=== PATIENT | female | born 1965 | race Caucasian/White ===

== ENCOUNTER 2017-06-03 09:11 | Inpatient (IN) | payer MEDICAID ==
[2017-06-03 09:23] VITALS: BMI 32.3
[2017-06-03] MEDS ORDERED: Sodium Chloride 0.9% 1,000 ML IV STA ×2 (10:05→13:35)
[2017-06-03] MEDS ORDERED: Morphine 4 mg/ml ISec IVP STA ×2 (10:05→13:03)
[2017-06-03 10:50] LABS: ADD MANUAL DIFF? NO
[2017-06-03 10:54] LABS: BASO # 0.02 K/mm3 (0.0-2.0); BASO % 0.4 % (0.0-3.0); EOS % 0.5 % (1.5-5.0); GRAN # 3.41 (1.4-6.5); GRAN % 60.6 % (50.0-68.0); HEMATOCRIT 36.5 % (36.0-48.0); LYMPH # 1.9 (1.2-3.4); LYMPH % 33.9 % (22.0-35.0); MEAN CELL VOLUME 83.9 fl (80.0-105.0); MEAN CORPUSCULAR HEMOGLOBIN 28.7 pg (25.0-35.0); MEAN CORPUSCULAR HGB CONC 34.2 g/dl (31.0-37.0); MEAN PLATELET VOLUME 10.2 fl (7.0-11.0); MONO # 0.3 (0.1-0.6); MONO % 4.6 % (1.0-6.0); PLATELET COUNT 276 10^3/uL (120.0-450.0); RED CELL DISTRIBUTION WIDTH 12.9 % (11.5-14.5); WHITE BLOOD COUNT 5.6 10^3/ul (4.5-11.0)
[2017-06-03 11:03] LABS: ALB/GLOB RATIO 1.3 (1.1-1.8); ALKALINE PHOSPHATASE 233 U/L (38-133); ALT/SGPT 300 U/L (7-56); AST/SGOT 192 U/L (15-39); BILIRUBIN,TOTAL 0.6 mg/dL (0.2-1.3); BLOOD UREA NITROGEN 13 mg/dL (7-21); CALCIUM 9.7 mg/dL (8.4-10.5); CARBON DIOXIDE 25 mmol/L (21-33); CHLORIDE 100 mmol/L (98-107); GFR AFRICAN-AMERICAN > 60; GLUCOSE,RANDOM 269 mg/dL (70-110); LIPASE 285 U/L (23-300); POTASSIUM 4.2 mmol/L (3.6-5.0); SODIUM 135 mmol/L (132-148); TOTAL PROTEIN 7.2 g/dL (5.8-8.3)
[2017-06-03 11:05] LABS: PH,URINE 5.5 (4.7-8.0); URINE BILIRUBIN NEGATIVE (NEGATIVE); URINE BLOOD NEGATIVE (NEGATIVE); URINE GLUCOSE (UA) >=1000 mg/dL (NEGATIVE); URINE KETONE >=80 mg/dL (NEGATIVE); URINE LEUKOCYTE ESTERASE NEGATIVE Leu/uL (NEGATIVE); URINE PROTEIN NEGATIVE mg/dL (<30 mg/dL); URINE UROBILINOGEN 0.2 E.U./dL (<1 E.U./dL)
[2017-06-03 11:06] LABS: URINE APPEARANCE CLEAR (CLEAR); URINE COLOR YELLOW (YELLOW)
[2017-06-03] MEDS ORDERED: Iohexol 350 MG/100 ML VIAL ONE (11:19)
--- NOTE | 2017-06-03 11:40 | ED PDOC ---
Arrival/HPI - General Chief Complaint: Back Pain Time Seen by Provider: 06/03/17 09:37 Historian: Patient - History of Present Illness Narrative History of Present Illness (Text): 06/03/17 11:36 52-year-old female with a history of diabetes presents today with a 3 day history of bilateral back pain. Denies chest pain or shortness of breath. Denies fevers or chills. Patient denies any urinary symptoms. Patient states the pain has been gradually worsening over the past 3 days. She denies numbness weakness or tingling in the lower extremities. Denies bladder or bowel incontinence. Denies trauma or injury. Patient states she's been taking unknown pain medication at home without improvement in her symptoms. Time/Duration: Other (3 days) Symptom Course: Worsening Past Medical History - Provider Review Nursing Documentation Reviewed: Yes - Travel History Have you recently traveled outside [place] w/in the past 3 mons?: No - Infectious Disease Hx of Infectious Diseases: None - Tetanus Immunization Tetanus Immunization: Unknown - Cardiac Hx Cardiac Disorders: No - Pulmonary Hx Respiratory Disorders: No - Neurological Hx Neurological Disorder: No - HEENT Hx HEENT Disorder: Yes Hx Glaucoma: Yes - Renal Hx Renal Disorder: No - Endocrine/Metabolic Hx Endocrine Disorders: Yes Hx Diabetes Mellitus Type 2: Yes - Hematological/Oncological Hx Blood Disorders: No - Integumentary Hx Dermatological Disorder: No - Musculoskeletal/Rheumatological Hx Musculoskeletal Disorders: No - Gastrointestinal Hx Gastrointestinal Disorders: No - Genitourinary/Gynecological Hx Genitourinary Disorders: No - Psychiatric Hx Psychophysiologic Disorder: No Hx Substance Use: No - Surgical History Hx Section: Yes (x4) - Anesthesia Hx Anesthesia: Yes Hx Anesthesia Reactions: No Family/Social History - Physician Review Nursing Documentation Reviewed: Yes Family/Social History: Unknown Family HX Smoking Status: Never Smoked Hx Alcohol Use: No Hx Substance Use: No Allergies/Home Meds Allergies/Adverse Reactions: Allergies Penicillins Allergy (Verified 06/03/17 09:23) ITCHING Home Medications: Home Meds Medication Instructions Recorded Confirmed Insulin Glargine, Recombina 50 units SQ DAILY 06/03/17 06/03/17 [Lantus] MetFORMIN [glucoPHAGE] 500 mg PO BID 06/03/17 06/03/17 Review of Systems - Review of Systems Constitutional: absent: Fatigue, Fevers Respiratory: absent: SOB, Cough Cardiovascular: absent: Chest Pain, Palpitations Gastrointestinal: absent: Abdominal Pain, Constipation, Diarrhea, Nausea, Vomiting Genitourinary Female: absent: Dysuria, Frequency, Hematuria, Vaginal Bleeding, Vaginal Discharge Musculoskeletal: Back Pain. absent: Arthralgias, Neck Pain Skin: absent: Rash, Pruritis Neurological: absent: Headache, Dizziness Psychiatric: absent: Anxiety, Depression Physical Exam Vital Signs Reviewed: Yes Vital Signs Temp Pulse Resp BP Pulse Ox 06/03/17 09:26 97.9 F 69 20 106/72 100 Temperature: Afebrile Blood Pressure: Normal Pulse: Regular Respiratory Rate: Normal Appearance: Positive for: Well-Appearing, Non-Toxic, Comfortable Pain Distress: None Mental Status: Positive for: Alert and Oriented X 3 Finger Stick Blood Glucose: 240 - Systems Exam Head: Present: Atraumatic Neck: Present: Normal Range of Motion Respiratory/Chest: Present: Clear to Auscultation, Good Air Exchange. No: Respiratory Distress, Accessory Muscle Use Cardiovascular: Present: Regular Rate and Rhythm, Normal S1, S2. No: Murmurs Abdomen: Present: Normal Bowel Sounds. No: Tenderness, Distention, Peritoneal Signs, Rebound, Guarding Back: Present: CVA Tenderness Upper Extremity: Present: Normal Inspection Lower Extremity: Present: Normal Inspection Neurological: Present: GCS=15, Speech Normal Skin: Present: Warm, Dry, Normal Color. No: Rashes Psychiatric: Present: Alert, Oriented x 3 Medical Decision Making ED Course and Treatment: 06/03/17 11:39 Patient is nontoxic well appearing with stable vital signs presenting with severe back pain CBC within normal limits CMP glucose 269. Elevated LFTs . Lipase wnl Urinalysis + glucose CAT scan:FINDINGS: LOWER THORAX: Unremarkable. LIVER: Unremarkable. No gross lesion or ductal dilatation. GALLBLADDER AND BILE DUCTS: Unremarkable. PANCREAS: There is a mass in the pancreatic head and uncinate process suspicious for a pancreatic malignancy. This can be seen on axial image 66 series 2 where it measures 22 x 33 mm. There is also invasion of the fat planes surrounding the superior mesenteric artery. There is narrowing of the superior mesenteric vein seen on coronal image 38. SPLEEN: Unremarkable. ADRENALS: Unremarkable. No mass. KIDNEYS AND URETERS: Unremarkable. No hydronephrosis. No solid mass. VASCULATURE: Unremarkable. No aortic aneurysm. BOWEL: Unremarkable. No obstruction. No gross mural thickening. APPENDIX: Normal appendix. PERITONEUM: Unremarkable. No free fluid. No free air. LYMPH NODES: There is an enlarged lymph node seen on the left side of the aorta and near the pancreas measuring 9 x 18 mm. Image 65 BLADDER: Unremarkable. REPRODUCTIVE: Unremarkable. BONES: No acute fracture. OTHER FINDINGS: Findings were discussed with Padmini Bernabe in the emergency department at 12: 30 p.m. IMPRESSION: Hypodense mass in the head and uncinate process of the pancreas with invasion of the fat planes around the superior mesenteric artery and vein. Adjacent adenopathy. Findings consistent with pancreatic malignancy Patient reassessment:pt with continued pain; additional morphine added. NS iv bolus given Discussed all results with patient in depth. will admit for pancreatic cancer work up; pts brother at 43 from pancreatic cancer. case discussed with dr. garcia; accepts admission. Impression: intractable back pain, pancreatic cancer, hyperglycemia admit to med/surg - Lab Interpretations Lab Results: 06/03/17 10:40 06/03/17 10:40 Lab Results 06/03/17 10:40: WBC 5.6, RBC 4.35, Hgb 12.5, Hct 36.5, MCV 83.9, MCH 28.7, MCHC 34.2, RDW 12.9, Plt Count 276, MPV 10.2, Gran % 60.6, Lymph % (Auto) 33.9, Scott % (Auto) 4.6, Eos % (Auto) 0.5 L, Baso % (Auto) 0.4, Gran # 3.41, Lymph # 1.9, Scott # 0.3, Eos # 0.0, Baso # 0.02 06/03/17 10:40: Sodium 135, Potassium 4.2, Chloride 100, Carbon Dioxide 25, Anion Gap 14, BUN 13, Creatinine 0.5, Est GFR ( Amer) > 60, Est GFR (Non- Af Amer) > 60, Random Glucose 269 H, Calcium 9.7, Total Bilirubin 0.6, AST 192 H , ALT 300 H, Alkaline Phosphatase 233 H, Total Protein 7.2, Albumin 4.1, Globulin 3.1, Albumin/Globulin Ratio 1.3, Lipase 285 06/03/17 10:40: Urine Color Yellow, Urine Appearance Clear, Urine pH 5.5, Ur Specific Louise 1.025, Urine Protein Negative, Urine Glucose (UA) >=1000, Urine Ketones >=80, Urine Blood Negative, Urine Nitrate Negative, Urine Bilirubin Negative, Urine Urobilinogen 0.2, Ur Leukocyte Esterase Negative - RAD Interpretation Radiology Orders: 06/03/17 10:05 ABD & PELVIS IV CONTRAST ONLY [CT] Stat - Medication Orders Current Medication Orders: Discontinued Medications Sodium Chloride (Sodium Chloride 0.9%) 1,000 mls @ 999 mls/hr IV .Q1H1M STA Stop: 06/03/17 11:05 Last Admin: 06/03/17 10:37 Dose: 999 mls/hr Iohexol (Omnipaque 350 100 Ml) Confirm Administered Dose 350 mg .ROUTE .STK-MED ONE Stop: 06/03/17 11:20 Morphine Sulfate (Morphine) 4 mg IVP STAT STA Stop: 06/03/17 10:06 Last Admin: 06/03/17 10:36 Dose: 4 mg Morphine Sulfate (Morphine) 4 mg IVP STAT STA Stop: 06/03/17 13:04 Disposition/Present on Arrival - Present on Arrival Any Indicators Present on Arrival: No History of DVT/PE: No History of Uncontrolled Diabetes: No Urinary Catheter: No History of Decub. Ulcer: No History Surgical Site Infection Following: None - Disposition Have Diagnosis and Disposition been Completed?: Yes Diagnosis: Pancreatic cancer, Hyperglycemia, Intractable back pain Disposition: HOSPITALIZED Disposition Time: 13:15 Patient Plan: Admission Condition: FAIR Referrals: PCP,NO [Primary Care Provider] - Follow up with primary Forms: [employer] (Swazi)
--- NOTE | 2017-06-03 12:38 | CT ---
PROCEDURE: CT Abdomen and Pelvis with contrast HISTORY: back pain/ b/l COMPARISON: None. TECHNIQUE: Contrast dose: 100 cc of Omni 350 Radiation dose: Total exam DLP = 1045 mGy-cm. This CT exam was performed using one or more of the following dose reduction techniques: Automated exposure control, adjustment of the mA and/or kV according to patient size, and/or use of iterative reconstruction technique. FINDINGS: LOWER THORAX: Unremarkable. LIVER: Unremarkable. No gross lesion or ductal dilatation. GALLBLADDER AND BILE DUCTS: Unremarkable. PANCREAS: There is a mass in the pancreatic head and uncinate process suspicious for a pancreatic malignancy. This can be seen on axial image 66 series 2 where it measures 22 x 33 mm. There is also invasion of the fat planes surrounding the superior mesenteric artery. There is narrowing of the superior mesenteric vein seen on coronal image 38. SPLEEN: Unremarkable. ADRENALS: Unremarkable. No mass. KIDNEYS AND URETERS: Unremarkable. No hydronephrosis. No solid mass. VASCULATURE: Unremarkable. No aortic aneurysm. BOWEL: Unremarkable. No obstruction. No gross mural thickening. APPENDIX: Normal appendix. PERITONEUM: Unremarkable. No free fluid. No free air. LYMPH NODES: There is an enlarged lymph node seen on the left side of the aorta and near the pancreas measuring 9 x 18 mm. Image 65 BLADDER: Unremarkable. REPRODUCTIVE: Unremarkable. BONES: No acute fracture. OTHER FINDINGS: Findings were discussed with Padmini Bernabe in the emergency department at 12:30 p.m. IMPRESSION: Hypodense mass in the head and uncinate process of the pancreas with invasion of the fat planes around the superior mesenteric artery and vein. Adjacent adenopathy. Findings consistent with pancreatic malignancy
--- NOTE | 2017-06-03 14:19 | CP.PCM.HP ---
<Rylie Chapin - Last Filed: 06/03/17 15:00> History of Present Illness - History of Present Illness History of Present Illness: 52 year old female with past medical hx of diabetes mellitus, type 2 presents to the ED for 3 day history of B/L flank pain. Patient reports that pain was progressively worsening and made it difficult to sleep. Rates pain 6/10, non- radiating. She thought she had a kidney problem, Saw her PMD who informed her that it wasnt her kidney. Patient denies any recent weight loss, headaches, dizziness, chest pain, sob, abdominal pain, urinary symptoms, changes in bowel habits. Reports having decreased appetite. ED Course: Morphine 4mg x 2, NS bolus x 1 Allergies: PCN Medical Hx: DM, B/L cataracts Medications: Metoformin, Insulin Surgical Hx: C/S x 4 Social Hx: denies alcohol, drug, tobacco use Family Hx: Brother at age 43 from pancreatic CA Present on Admission - Present on Admission Any Indicators Present on Admission: No History of DVT/PE: No History of Uncontrolled Diabetes: Yes Urinary Catheter: No Decubitus Ulcer Present: No Review of Systems - Review of Systems All systems: reviewed and no additional remarkable complaints except - Constitutional Constitutional: absent: Chills, Fatigue, Weight Loss, Weakness - EENT Eyes: absent: Change in Vision Ears: absent: Decreased Hearing - Cardiovascular Cardiovascular: absent: Chest Pain, Dyspnea, Lightheadedness, Palpitations - Respiratory Respiratory: absent: Cough, Dyspnea, Wheezing - Gastrointestinal Gastrointestinal: absent: Abdominal Pain, Change in Stool Character, Constipation, Diarrhea, Nausea, Vomiting - Genitourinary Genitourinary: absent: Difficulty Urinating, Dysuria, Hematuria, Urinary Frequency - Musculoskeletal Musculoskeletal: Back Pain. absent: Joint Swelling, Numbness, Tingling - Integumentary Integumentary: absent: Change in Hair, Pruritus, Rash, Jaundice - Neurological Neurological: absent: Confusion, Dizziness, Numbness, Headaches, Tremor - Psychiatric Psychiatric: absent: Anxiety, Depression Past Patient History - Infectious Disease Hx of Infectious Diseases: None - Tetanus Immunizations Tetanus Immunization: Unknown - Past Social History Smoking Status: Never Smoked - CARDIAC Hx Cardiac Disorders: No - PULMONARY Hx Respiratory Disorders: No - NEUROLOGICAL Hx Neurological Disorder: No - HEENT Hx HEENT Problems: Yes Hx Glaucoma: Yes - RENAL Hx Chronic Kidney Disease: No - ENDOCRINE/METABOLIC Hx Endocrine Disorders: Yes Hx Diabetes Mellitus Type 2: Yes - HEMATOLOGICAL/ONCOLOGICAL Hx Blood Disorders: No - INTEGUMENTARY Hx Dermatological Problems: No - MUSCULOSKELETAL/RHEUMATOLOGICAL Hx Musculoskeletal Disorders: No - GASTROINTESTINAL Hx Gastrointestinal Disorders: No - GENITOURINARY/GYNECOLOGICAL Hx Genitourinary Disorders: No - PSYCHIATRIC Hx Psychophysiologic Disorder: No Hx Substance Use: No - SURGICAL HISTORY Hx Section: Yes (x4) - ANESTHESIA Hx Anesthesia: Yes Hx Anesthesia Reactions: No Meds Home Medications: Home Medication List Medication Instructions Recorded Confirmed Type Ibuprofen [Motrin Tab] 600 mg PO Q6H PRN #20 tab 06/06/17 Rx Insulin Regular [HumuLIN R] 5 units SC TID 15 Days 06/06/17 Rx Insulin Detemir [Levemir] 15 unit SC Q12 15 Days 06/06/17 Rx Allergies/Adverse Reactions: Allergies Allergy/AdvReac Type Severity Reaction Status Date / Time Penicillins Allergy ITCHING Verified 06/03/17 09:23 Physical Exam - Constitutional Appears: Well, No Acute Distress - Head Exam Head Exam: ATRAUMATIC, NORMAL INSPECTION - Eye Exam Eye Exam: EOMI, Normal appearance. absent: Scleral icterus Pupil Exam: NORMAL ACCOMODATION - ENT Exam ENT Exam: Mucous Membranes Moist - Neck Exam Neck exam: Positive for: Full Rom, Normal Inspection - Respiratory Exam Respiratory Exam: Clear to Auscultation Bilateral, NORMAL BREATHING PATTERN. absent: Rales, Rhonchi, Wheezes - Cardiovascular Exam Cardiovascular Exam: REGULAR RHYTHM, +S1, +S2. absent: Systolic Murmur - GI/Abdominal Exam GI & Abdominal Exam: Normal Bowel Sounds, Soft. absent: Distended, Firm, Guarding, Organomegaly, Rigid, Tenderness - Extremities Exam Extremities exam: Positive for: normal capillary refill, normal inspection, pedal pulses present. Negative for: tenderness - Back Exam Back exam: CVA tenderness (L), CVA tenderness (R), NORMAL INSPECTION - Neurological Exam Neurological exam: Alert, CN II-XII Intact, Normal Gait, Oriented x3 - Psychiatric Exam Psychiatric exam: Anxious, Normal Affect, Normal Mood - Skin Skin Exam: Dry, Normal Color, Warm Results - Vital Signs Recent Vital Signs: Last Vital Signs Temp 97.9 F 06/03/17 09:26 Pulse 88 06/03/17 11:30 Resp 18 06/03/17 11:30 BP 131/77 06/03/17 11:30 Pulse Ox 98 06/03/17 11:30 - Labs Result Diagrams: 06/03/17 10:40 06/03/17 10:40 Assessment & Plan - Assessment and Plan (Free Text) Assessment: 52 year old female with past medical hx of uncontrolled diabetes mellitus presents with 3 day history of B/L flank pain, CT abd/pelvis showing hypodense mass in the head and uncinate process of pancreas with invasion of the fat planes around the superior mesenteric artery/vein. Adjacent adenopathy. Plan: 1. Pancreatic Mass, r/o malignancy -Stable, afebrile -F/U CA 19-9, am Labs -Pain control: Toradol and Motrin prn -CT abd/pelvis: hypodense mass in the head and uncinate process of pancreas -GI on consult f/u recommendations -Heme/Onc on consult, f/u recommendations 2. Uncontrolled Diabetes Mellitus, Type 2 -F/U hgA1C -Medium dose ISS -Accuchecks ACHS 3. Transaminitis -AST/ALT: 192/300 -CT abd/pelvis: liver/gallbladder unremarkable -Continue to monitor -Avoid hepatotoxic agents -GI on consult f/u recommendations 4. GI/DVT ppx -Protonix 40mg PO daily -SCDs Rylie Chapin PGY-1 <Kelsey Lee - Last Filed: 06/06/17 16:42> Results - Vital Signs Recent Vital Signs: Last Vital Signs Temp 98 F 06/05/17 15:55 Pulse 76 06/05/17 15:55 Resp 20 06/05/17 15:55 BP 136/77 06/05/17 15:55 Pulse Ox 99 06/05/17 15:55 - Labs Result Diagrams: 06/05/17 05:30 06/05/17 05:30 Labs: Laboratory Results - last 24 hr 06/04/17 06/05/17 06/05/17 22:24 05:30 05:30 WBC 4.9 RBC 4.15 Hgb 11.9 L Hct 35.1 L MCV 84.6 MCH 28.7 MCHC 33.9 RDW 13.5 Plt Count 271 MPV 9.9 Sodium 141 Potassium 4.5 Chloride 105 Carbon Dioxide 25 Anion Gap 16 BUN 12 Creatinine 0.5 Est GFR ( Amer) > 60 Est GFR (Non-Af Amer) > 60 POC Glucose (mg/dL) 345 H Random Glucose 299 H Calcium 9.3 06/05/17 06/05/17 06/05/17 07:55 11:44 16:05 WBC RBC Hgb Hct MCV MCH MCHC RDW Plt Count MPV Sodium Potassium Chloride Carbon Dioxide Anion Gap BUN Creatinine Est GFR ( Amer) Est GFR (Non-Af Amer) POC Glucose (mg/dL) 260 H 351 H 299 H Random Glucose Calcium Attending/Attestation - Attestation I have personally seen and examined this patient.: Yes I have fully participated in the care of the patient.: Yes I have reviewed all pertinent clinical information: Yes Notes (Text): I have seen and examined the patient at bedside. Agree with the above note with the following additions/ exceptions: Briefly this is 52 year old female with history of recently uncontrolled DM-2 who presented with bilateral flank pain and found to have locally advanced pancreatic cancer on CT abdomen. Will consult GI and hematology. Patient was explained about the diagnosis. She was also given copy of her CT scan. Will order hba1c and will start medium coverage ISS. Upon discharge patient will follow up with Dr Boyce. Dr Kelsey Lee
[2017-06-03] MEDS ORDERED: Insulin Lispro (humaLOG) MEDIUM Coverage SC SCH (16:30)
[2017-06-03] MEDS: Insulin Lispro (humaLOG) MEDIUM Coverage SC SCH ×2 (17:40→22:01)
[2017-06-03] MEDS ORDERED: Pneumococcal 23-Valent Vaccine IM ONE (18:54)
[2017-06-04] MEDS: Pantoprazole 40 mg EC Tab PO SCH (05:40)
[2017-06-04 07:35] LABS: ADD MANUAL DIFF? NO
[2017-06-04 07:43] LABS: BASO # 0.02 K/mm3 (0.0-2.0); BASO % 0.4 % (0.0-3.0); EOS # 0.1 (0.0-0.7); EOS % 1.3 % (1.5-5.0); GRAN # 2.56 (1.4-6.5); GRAN % 54.8 % (50.0-68.0); LYMPH # 1.8 (1.2-3.4); LYMPH % 37.7 % (22.0-35.0); MEAN CELL VOLUME 83.9 fl (80.0-105.0); MEAN CORPUSCULAR HEMOGLOBIN 28.8 pg (25.0-35.0); MEAN CORPUSCULAR HGB CONC 34.3 g/dl (31.0-37.0); MEAN PLATELET VOLUME 9.7 fl (7.0-11.0); MONO # 0.3 (0.1-0.6); MONO % 5.8 % (1.0-6.0); PLATELET COUNT 281 10^3/uL (120.0-450.0); RED CELL DISTRIBUTION WIDTH 13.2 % (11.5-14.5); WHITE BLOOD COUNT 4.7 10^3/ul (4.5-11.0)
[2017-06-04 07:52] LABS: ALB/GLOB RATIO 1.3 (1.1-1.8); ALKALINE PHOSPHATASE 213 U/L (38-133); ALT/SGPT 224 U/L (7-56); AST/SGOT 99 U/L (15-39); BILIRUBIN,TOTAL 0.7 mg/dL (0.2-1.3); BLOOD UREA NITROGEN 11 mg/dL (7-21); CALCIUM 9.5 mg/dL (8.4-10.5); CARBON DIOXIDE 24 mmol/L (21-33); CHLORIDE 103 mmol/L (98-107); GFR AFRICAN-AMERICAN > 60; GLUCOSE,RANDOM 219 mg/dL (70-110); MAGNESIUM 1.8 mg/dL (1.7-2.2); PHOSPHOROUS 3.9 mg/dL (2.5-4.5); POTASSIUM 4.2 mmol/L (3.6-5.0); SODIUM 138 mmol/L (132-148); TOTAL PROTEIN 6.8 g/dL (5.8-8.3)
[2017-06-04] MEDS: Insulin Lispro (humaLOG) MEDIUM Coverage SC SCH ×4 (08:17→23:40)
[2017-06-04] MEDS: Sodium Chloride 0.45% 1,000 ML IV SCH ×2 (11:29→23:47)
[2017-06-04] MEDS ORDERED: Midazolam 2 MG/2 ML VIAL ONE (12:34)
[2017-06-04] MEDS ORDERED: Insulin Detemir 100 units/ml Vial (Levemir) SC SCH (13:45)
[2017-06-04] MEDS ORDERED: Oxycodone/Acetaminophen 5/325 mg Tab ONE (13:48)
[2017-06-04] MEDS: Oxycodone/Acetaminophen 5/325 mg Tab PO PRN (13:50)
[2017-06-04 14:41] LABS: CA 19-9 4490 U/mL (0-37)
--- NOTE | 2017-06-04 14:48 | CT ---
PROCEDURE: CT guided pancreatic biopsy. HISTORY: Infiltrative 3 cm uncinate mass. Evaluate for pancreatic malignancy. PHYSICIAN(S): Kavon Luis MD. TECHNIQUE: The relative risks and indications of the procedure were explained to the patient and consent obtained. The patient was placed supine on the CT scanner and preliminary images through the upper abdomen obtained. Conscious sedation and monitoring were provided throughout the procedure by a nurse. There is an infiltrative 3 cm mass involving the uncinate process of the pain. A sub xiphoid transgastric approach was selected and the area prepped and draped in the usual sterile fashion. 1% Xylocaine was used to anesthetize the skin and soft tissues. A 17-gauge guiding needle was advanced into the 3 cm pancreatic mass. Its position was confirmed with CT. Using coaxial technique, multiple core biopsies were obtained. The postprocedure images show no evidence of significant hemorrhage. IMPRESSION: 1. CT-guided pancreatic biopsy as described above.
[2017-06-04 14:50] LABS: INR 0.96 (0.93-1.08); PARTIAL THROMBOPLASTIN TIME 26.1 Seconds (23.7-30.8)
--- NOTE | 2017-06-04 15:57 | CP.PCM.PN ---
<Rylie Chapin - Last Filed: 06/04/17 16:01> Subjective - Date & Time of Evaluation Date of Evaluation: 06/04/17 Time of Evaluation: 06:55 - Subjective Subjective: Rylie Chapin DO, PGY-1, Internal Medicine, Hospitalist Service Patient seen and examined at bedside. Per nursing no acute events overnight. Patient resting comfortably in bed, tearful. No complaints at this time. Pain is controlled. Denies headache, dizziness, cp, palpitations, sob, abdominal pain , urinary symptoms, changes in bowel habits. Objective - Vital Signs/Intake and Output Vital Signs (last 24 hours): Temp Pulse Resp BP Pulse Ox 97.5 F L 63 16 121/71 97 06/04/17 13:56 06/04/17 13:56 06/04/17 13:56 06/04/17 13:56 06/04/17 13:56 Intake and Output: 06/04/17 06/04/17 06:59 18:59 Intake Total 420 700 Balance 420 700 - Medications Medications: Current Medications Acetaminophen (Tylenol 325mg Tab) 650 mg PO Q4 PRN PRN Reason: Pain, Mild (1-3) Sodium Chloride (Sodium Chloride 0.45%) 1,000 mls @ 80 mls/hr IV .[id number] [facility] Stop: 06/05/17 08:00 Last Admin: 06/04/17 11:29 Dose: 80 mls/hr Ibuprofen (Motrin Tab) 600 mg PO Q6H PRN PRN Reason: Pain, Mild (1-3) Insulin Detemir (Levemir) 10 unit SC Q12H [facility] Last Admin: 06/04/17 14:49 Dose: 10 unit Insulin Human Lispro (Humalog Med) 0 units SC ACHS [facility] Last Admin: 06/04/17 11:59 Dose: 8 units Ketorolac Tromethamine (Toradol) 30 mg IVP Q6H PRN PRN Reason: Pain, moderate (4-7) Last Admin: 06/03/17 23:13 Dose: 30 mg Ondansetron HCl (Zofran Inj) 4 mg IVP Q6H PRN PRN Reason: Nausea/Vomiting Oxycodone/Acetaminophen (Percocet 5/325 Mg Tab) 1 tab PO Q4H PRN PRN Reason: Pain, moderate (4-7) Stop: 06/07/17 13:14 Last Admin: 06/04/17 13:50 Dose: 1 tab Pantoprazole Sodium (Protonix Ec Tab) 40 mg PO 0600 [facility] Last Admin: 06/04/17 05:40 Dose: 40 mg - Labs Labs: 06/04/17 07:00 06/04/17 07:00 PT 10.4 Seconds (9.9-11.8) 06/04/17 14:25 INR 0.96 (0.93-1.08) 06/04/17 14:25 APTT 26.1 Seconds (23.7-30.8) 06/04/17 14:25 - Constitutional Appears: Well, No Acute Distress - Head Exam Head Exam: ATRAUMATIC, NORMAL INSPECTION - Eye Exam Eye Exam: EOMI, Normal appearance. absent: Scleral icterus Pupil Exam: NORMAL ACCOMODATION - ENT Exam ENT Exam: Mucous Membranes Moist - Neck Exam Neck Exam: Full ROM - Respiratory Exam Respiratory Exam: Clear to Ausculation Bilateral, NORMAL BREATHING PATTERN. absent: Rales, Rhonchi, Wheezes - Cardiovascular Exam Cardiovascular Exam: REGULAR RHYTHM, +S1, +S2 - GI/Abdominal Exam GI & Abdominal Exam: Soft, Normal Bowel Sounds. absent: Guarding, Rigid, Tenderness, Rebound - Extremities Exam Extremities Exam: Full ROM, Normal Inspection. absent: Calf Tenderness - Back Exam Back Exam: NORMAL INSPECTION - Neurological Exam Neurological Exam: Alert, Awake, Normal Gait, Oriented x3 - Psychiatric Exam Psychiatric exam: Anxious, Normal Affect, Normal Mood - Skin Skin Exam: Normal Color, Warm Assessment and Plan - Assessment and Plan (Free Text) Assessment: 52 year old female with past medical hx of uncontrolled diabetes mellitus presents with 3 day history of B/L flank pain, CT abd/pelvis showing hypodense mass in the head and uncinate process of pancreas with invasion of the fat planes around the superior mesenteric artery/vein. Adjacent adenopathy. Plan: 1. Pancreatic Mass, r/o malignancy -Stable, afebrile -F/U CA 19-9, am Labs -Pain control: Toradol and Motrin prn -CT abd/pelvis: hypodense mass in the head and uncinate process of pancreas -Patient for CT guided biopsy today with IR -GI on consult f/u recommendations -Heme/Onc on consult, f/u recommendations 2. Uncontrolled Diabetes Mellitus, Type 2 -HgA1C 11.8 -Medium dose ISS -Will add Levemir 10U Q12H -Accucheckemily ACHS 3. Transaminitis -AST/ALT: 99/224 -CT abd/pelvis: liver/gallbladder unremarkable -Continue to monitor -Avoid hepatotoxic agents -GI on consult f/u recommendations 4. GI/DVT ppx -Protonix 40mg PO daily -SCDs <Kelsey Lee B - Last Filed: 06/06/17 16:40> Objective - Vital Signs/Intake and Output Vital Signs (last 24 hours): Temp Pulse Resp BP Pulse Ox 98 F 76 20 136/77 99 06/05/17 15:55 06/05/17 15:55 06/05/17 15:55 06/05/17 15:55 06/05/17 15:55 Intake and Output: 06/06/17 06/06/17 06:59 18:59 Intake Total 120 240 Balance 120 240 - Medications Medications: Current Medications Acetaminophen (Tylenol 325mg Tab) 650 mg PO Q4 PRN PRN Reason: Pain, Mild (1-3) Ibuprofen (Motrin Tab) 600 mg PO Q6H PRN PRN Reason: Pain, Mild (1-3) Insulin Detemir (Levemir) 15 unit SC Q12 [facility] Last Admin: 06/06/17 09:33 Dose: 15 unit Insulin Human Regular (Humulin R) 5 units SC TID [facility] Ketorolac Tromethamine (Toradol) 30 mg IVP Q6H PRN PRN Reason: Pain, moderate (4-7) Last Admin: 06/04/17 22:58 Dose: 30 mg Ondansetron HCl (Zofran Inj) 4 mg IVP Q6H PRN PRN Reason: Nausea/Vomiting Last Admin: 06/04/17 22:53 Dose: 4 mg Oxycodone/Acetaminophen (Percocet 5/325 Mg Tab) 1 tab PO Q4H PRN PRN Reason: Pain, moderate (4-7) Stop: 06/07/17 13:14 Last Admin: 06/06/17 08:45 Dose: 1 tab Pantoprazole Sodium (Protonix Ec Tab) 40 mg PO 0600 [facility] Last Admin: 06/06/17 06:00 Dose: 40 mg - Labs Labs: 06/05/17 05:30 06/05/17 05:30 PT 10.4 Seconds (9.9-11.8) 06/04/17 14:25 INR 0.96 (0.93-1.08) 06/04/17 14:25 APTT 26.1 Seconds (23.7-30.8) 06/04/17 14:25 Attending/Attestation - Attestation I have personally seen and examined this patient.: Yes I have fully participated in the care of the patient.: Yes I have reviewed all pertinent clinical information, including history, physical exam and plan: Yes Notes (Text): I have seen and examined the patient at bedside. Agree with the above note with the following additions/ exceptions: Briefly this is 52 year old female with history of uncontrolled DM-2 who presented with bilateral flank pain and found to have locally advanced pancreatic cancer on CT abdomen. GI consult appreciated. Patient is scheduled for CT guided biopsy by IR today. Patients back pain has resolved. She was also found to have uncontrolled DM. Will start levemir. Awaiting hematology consult. Upon discharge patient will follow up with Dr Boyce. Dr Kelsey Lee
--- NOTE | 2017-06-04 19:31 | CP.PCM.CON ---
History of Present Illness - History of Present Illness History of Present Illness: Oncology Consult Referred by Dr. Lee for pancreatic mass HPI- Ms Quiles is 52 y/o F with h/o DM (on insulin for last one year) who presented to ER with b/l flank pain. Her symptoms have been going on and off for few months. Last week she had an episode of vomiting and diarrhea but got better now. Denies urinary complaints. Her appetite has been decreasing and she lost around 20 lbs weight in last 6 months. ON admission, her liver enzymes were abnormal but with normal bilirubin. CT A/P with contrast showed 3.3 cm mass in pancreatic head with invasion of fat planes surrounding SMA. There was 1.8 cm adjacent lymphadenopathy. Her abdominal pain is better now. Denies fever , chills Allergies: PCN Medical Hx: DM, B/L cataracts Medications: Metoformin, Insulin Surgical Hx: C/S x 4 Social Hx: denies alcohol, drug, tobacco use Family Hx: Brother at age 43 from pancreatic Ca Review of Systems - Review of Systems All systems: reviewed and no additional remarkable complaints except Review of Systems: as in HPI Past Patient History - Infectious Disease Hx of Infectious Diseases: None - Tetanus Immunizations Tetanus Immunization: Unknown - Past Social History Smoking Status: Never Smoked - CARDIAC Hx Cardiac Disorders: No - PULMONARY Hx Respiratory Disorders: No - NEUROLOGICAL Hx Neurological Disorder: No - HEENT Hx HEENT Problems: Yes (eyeglasses) Hx Glaucoma: Yes - RENAL Hx Chronic Kidney Disease: No - ENDOCRINE/METABOLIC Hx Endocrine Disorders: Yes Hx Diabetes Mellitus Type 2: Yes - HEMATOLOGICAL/ONCOLOGICAL Hx Blood Disorders: No - INTEGUMENTARY Hx Dermatological Problems: No - MUSCULOSKELETAL/RHEUMATOLOGICAL Hx Falls: No - GASTROINTESTINAL Hx Gastrointestinal Disorders: No - GENITOURINARY/GYNECOLOGICAL Hx Genitourinary Disorders: No - PSYCHIATRIC Hx Substance Use: No - SURGICAL HISTORY Hx Surgeries: Yes (c section x 4) - ANESTHESIA Hx Anesthesia: Yes Hx Anesthesia Reactions: No Meds Allergies/Adverse Reactions: Allergies Allergy/AdvReac Type Severity Reaction Status Date / Time Penicillins Allergy ITCHING Verified 06/03/17 09:23 - Medications Medications: Current Medications Acetaminophen (Tylenol 325mg Tab) 650 mg PO Q4 PRN PRN Reason: Pain, Mild (1-3) Sodium Chloride (Sodium Chloride 0.45%) 1,000 mls @ 80 mls/hr IV .[id number] [facility] Stop: 06/05/17 08:00 Last Admin: 06/04/17 11:29 Dose: 80 mls/hr Ibuprofen (Motrin Tab) 600 mg PO Q6H PRN PRN Reason: Pain, Mild (1-3) Insulin Detemir (Levemir) 10 unit SC Q12H [facility] Last Admin: 06/04/17 14:49 Dose: 10 unit Insulin Human Lispro (Humalog Med) 0 units SC ACHS [facility] Last Admin: 06/04/17 17:02 Dose: 7 units Ketorolac Tromethamine (Toradol) 30 mg IVP Q6H PRN PRN Reason: Pain, moderate (4-7) Last Admin: 06/03/17 23:13 Dose: 30 mg Ondansetron HCl (Zofran Inj) 4 mg IVP Q6H PRN PRN Reason: Nausea/Vomiting Oxycodone/Acetaminophen (Percocet 5/325 Mg Tab) 1 tab PO Q4H PRN PRN Reason: Pain, moderate (4-7) Stop: 06/07/17 13:14 Last Admin: 06/04/17 13:50 Dose: 1 tab Pantoprazole Sodium (Protonix Ec Tab) 40 mg PO 0600 [facility] Last Admin: 06/04/17 05:40 Dose: 40 mg Physical Exam - Head Exam Head Exam: ATRAUMATIC, NORMAL INSPECTION - Eye Exam Eye Exam: EOMI, PERRL. absent: Scleral icterus - ENT Exam ENT Exam: Mucous Membranes Moist - Neck Exam Neck exam: Negative for: Lymphadenopathy - Respiratory Exam Respiratory Exam: Clear to Auscultation Bilateral - Cardiovascular Exam Cardiovascular Exam: REGULAR RHYTHM - GI/Abdominal Exam GI & Abdominal Exam: Normal Bowel Sounds, Soft. absent: Organomegaly, Tenderness - Extremities Exam Extremities exam: Negative for: pedal edema - Neurological Exam Neurological exam: Alert, Oriented x3 Results - Vital Signs Recent Vital Signs: Last Vital Signs Temp 99 F 06/04/17 16:00 Pulse 72 06/04/17 16:00 Resp 18 06/04/17 16:00 BP 124/74 06/04/17 16:00 Pulse Ox 100 06/04/17 16:00 - Labs Result Diagrams: 06/04/17 07:00 06/04/17 07:00 Labs: Laboratory Results - last 24 hr 06/03/17 06/04/17 06/04/17 21:18 07:00 07:00 WBC 4.7 RBC 4.41 Hgb 12.7 Hct 37.0 MCV 83.9 MCH 28.8 MCHC 34.3 RDW 13.2 Plt Count 281 MPV 9.7 Gran % 54.8 Lymph % (Auto) 37.7 H Buchanan % (Auto) 5.8 Eos % (Auto) 1.3 L Baso % (Auto) 0.4 Gran # 2.56 Lymph # 1.8 Buchanan # 0.3 Eos # 0.1 Baso # 0.02 PT INR APTT Sodium 138 Potassium 4.2 Chloride 103 Carbon Dioxide 24 Anion Gap 15 BUN 11 Creatinine 0.5 Est GFR ( Amer) > 60 Est GFR (Non-Af Amer) > 60 POC Glucose (mg/dL) 252 H Random Glucose 219 H Hemoglobin A1c Calcium 9.5 Phosphorus 3.9 Magnesium 1.8 Total Bilirubin 0.7 AST 99 H ALT 224 H Alkaline Phosphatase 213 H Total Protein 6.8 Albumin 3.8 Globulin 3.0 Albumin/Globulin Ratio 1.3 CA 19-9 Antigen 4490 H 06/04/17 06/04/17 06/04/17 07:00 07:51 11:29 WBC RBC Hgb Hct MCV MCH MCHC RDW Plt Count MPV Gran % Lymph % (Auto) Buchanan % (Auto) Eos % (Auto) Baso % (Auto) Gran # Lymph # Buchanan # Eos # Baso # PT INR APTT Sodium Potassium Chloride Carbon Dioxide Anion Gap BUN Creatinine Est GFR ( Amer) Est GFR (Non-Af Amer) POC Glucose (mg/dL) 238 H 385 H Random Glucose Hemoglobin A1c 11.8 H Calcium Phosphorus Magnesium Total Bilirubin AST ALT Alkaline Phosphatase Total Protein Albumin Globulin Albumin/Globulin Ratio CA 19-9 Antigen 06/04/17 06/04/17 14:25 16:08 WBC RBC Hgb Hct MCV MCH MCHC RDW Plt Count MPV Gran % Lymph % (Auto) Buchanan % (Auto) Eos % (Auto) Baso % (Auto) Gran # Lymph # Buchanan # Eos # Baso # PT 10.4 INR 0.96 APTT 26.1 Sodium Potassium Chloride Carbon Dioxide Anion Gap BUN Creatinine Est GFR ( Amer) Est GFR (Non-Af Amer) POC Glucose (mg/dL) 312 H Random Glucose Hemoglobin A1c Calcium Phosphorus Magnesium Total Bilirubin AST ALT Alkaline Phosphatase Total Protein Albumin Globulin Albumin/Globulin Ratio CA 19-9 Antigen Assessment & Plan - Assessment and Plan (Free Text) Assessment: Pancreatic mass, suspicious for pancreatic cancer CA19-9 markedly elevated 4490. s/p pancreatic mass biopsy, will f/u pathology. I had a long discussion with patient and her daughter about current findings and different treatment options. She should be seen by surgical oncology to assess resectability. We also discussed the option of upfront chemotherapy followed by surgery if possible. We discuss different chemotherapy agents active in pancreatic cancer. All her questions were answered. She can be discharged once clinically stable and follow up with me next week in office. Thank you for the consult Sammy Giron MD - Date & Time Date: 06/04/17 Time: 19:31
--- NOTE | 2017-06-04 21:20 | CON ---
DATE: 06/04/2017 REQUESTING PHYSICIAN: Dr. Lee. REASON FOR CONSULTATION: I have been asked to see this 52-year-old female with a history of diabetes mellitus, with several months of lower abdominal pain radiating with the back. Recently, the patient has developed bilateral flank pain. The patient admits to 60-pound weight loss over several years. Much of this being voluntary weight loss. She denies any nausea, vomiting, fevers, or chills. CT scan of the abdomen and pelvis with IV contrast performed in the emergency room showed a 2.2 cm hypodense mass in the head of the pancreas and the uncinate process of the pancreas. The patient had a brother, who from pancreatic cancer in his 40s. PAST MEDICAL HISTORY: Notable for diabetes mellitus and cataracts. PAST SURGICAL HISTORY: Notable for . SOCIAL HISTORY She denies alcohol abuse or tobacco use. FAMILY HISTORY Again is notable for brother with pancreatic cancer, who in an his 40s. REVIEW OF SYSTEMS: A 14-point review of systems is notable for abdominal pain and back pain. PHYSICAL EXAMINATION GENERAL: Middle-aged female lying in bed in no acute distress. VITAL SIGNS: Reveal temperature of 97.6, blood pressure 146/73, heart rate of 58. HEENT: Reveal sclerae to be white. Conjunctivae pink. NECK: Supple. CHEST: Reveal lungs to be clear. HEART: Exam reveals a regular rate and rhythm. ABDOMEN: Soft. Minimal diffuse tenderness. No rebound and no guarding. EXTREMITIES: Shows no edema. LABORATORY DATA Reveal white blood cell count 4.7 and hemoglobin 12.7. Chemistries reveal blood sugar 219, AST 99, ALT 224, alkaline phosphatase 213. IMPRESSION: This is a 52-year-old female with several months of abdominal pain radiating to the back with a 2.2 cm hypodense mass in the head of the pancreas and uncinate process with periaortic lymphadenopathy infiltration of the fat surrounding the superior mesenteric artery as well as compression of the mesenteric vein. I suspect that this is locally advanced pancreatic cancer. RECOMMENDATIONS: 1. We will request Dr. Kavon Luis for CT-guided biopsy of the pancreatic mass. 2. Check CA19-9 level. Jabier Kenyn MD
[2017-06-04] MEDS: Insulin Detemir 100 units/ml Vial (Levemir) SC SCH (22:45)
[2017-06-05] MEDS: Pantoprazole 40 mg EC Tab PO SCH (05:48)
[2017-06-05 06:36] LABS: HEMATOCRIT 35.1 % (36.0-48.0); MEAN CELL VOLUME 84.6 fl (80.0-105.0); MEAN CORPUSCULAR HEMOGLOBIN 28.7 pg (25.0-35.0); MEAN CORPUSCULAR HGB CONC 33.9 g/dl (31.0-37.0); MEAN PLATELET VOLUME 9.9 fl (7.0-11.0); RED CELL DISTRIBUTION WIDTH 13.5 % (11.5-14.5); WHITE BLOOD COUNT 4.9 10^3/ul (4.5-11.0)
[2017-06-05 06:51] LABS: BLOOD UREA NITROGEN 12 mg/dL (7-21); CALCIUM 9.3 mg/dL (8.4-10.5); CARBON DIOXIDE 25 mmol/L (21-33); CHLORIDE 105 mmol/L (95-110); GFR AFRICAN-AMERICAN > 60; GLUCOSE,RANDOM 299 mg/dL (70-110); POTASSIUM 4.5 mmol/L (3.6-5.0); SODIUM 141 mmol/L (132-148)
[2017-06-05] MEDS: Insulin Lispro (humaLOG) MEDIUM Coverage SC SCH ×4 (08:06→22:50)
[2017-06-05 08:27] VITALS: RESP 20
[2017-06-05] MEDS: Insulin Detemir 100 units/ml Vial (Levemir) SC SCH (10:58)
[2017-06-05] MEDS ORDERED: Insulin Detemir 100 units/ml Vial (Levemir) SC SCH (11:12)
--- NOTE | 2017-06-05 11:36 | CP.PCM.DIS ---
Provider - Provider Date of Admission: 06/03/17 13:26 Attending physician: Kelsey Lee MD Primary care physician: NO PRIMARY CARE PROVIDER Time Spent in preparation of Discharge (in minutes): 40 Hospital Course - Lab Results Lab Results: Most Recent Lab Values WBC 4.9 10^3/ul (4.5-11.0) 06/05/17 05:30 RBC 4.15 10^6/uL (3.5-6.1) 06/05/17 05:30 Hgb 11.9 g/dL (12.0-16.0) L 06/05/17 05:30 Hct 35.1 % (36.0-48.0) L 06/05/17 05:30 MCV 84.6 fl (80.0-105.0) 06/05/17 05:30 MCH 28.7 pg (25.0-35.0) 06/05/17 05:30 MCHC 33.9 g/dl (31.0-37.0) 06/05/17 05:30 RDW 13.5 % (11.5-14.5) 06/05/17 05:30 Plt Count 271 10^3/uL (120.0-450.0) 06/05/17 05:30 MPV 9.9 fl (7.0-11.0) 06/05/17 05:30 Gran % 54.8 % (50.0-68.0) 06/04/17 07:00 Lymph % (Auto) 37.7 % (22.0-35.0) H 06/04/17 07:00 Heard % (Auto) 5.8 % (1.0-6.0) 06/04/17 07:00 Eos % (Auto) 1.3 % (1.5-5.0) L 06/04/17 07:00 Baso % (Auto) 0.4 % (0.0-3.0) 06/04/17 07:00 Gran # 2.56 (1.4-6.5) 06/04/17 07:00 Lymph # 1.8 (1.2-3.4) 06/04/17 07:00 Heard # 0.3 (0.1-0.6) 06/04/17 07:00 Eos # 0.1 (0.0-0.7) 06/04/17 07:00 Baso # 0.02 K/mm3 (0.0-2.0) 06/04/17 07:00 PT 10.4 Seconds (9.9-11.8) 06/04/17 14:25 INR 0.96 (0.93-1.08) 06/04/17 14:25 APTT 26.1 Seconds (23.7-30.8) 06/04/17 14:25 Sodium 141 mmol/L (132-148) 06/05/17 05:30 Potassium 4.5 mmol/L (3.6-5.0) 06/05/17 05:30 Chloride 105 mmol/L (95-110) 06/05/17 05:30 Carbon Dioxide 25 mmol/L (21-33) 06/05/17 05:30 Anion Gap 16 (10-20) 06/05/17 05:30 BUN 12 mg/dL (7-21) 06/05/17 05:30 Creatinine 0.5 mg/dL (0.5-1.4) 06/05/17 05:30 Est GFR ( Amer) > 60 06/05/17 05:30 Est GFR (Non-Af Amer) > 60 06/05/17 05:30 POC Glucose (mg/dL) 260 mg/dL (65-110) H 06/05/17 07:55 Random Glucose 299 mg/dL (70-110) H 06/05/17 05:30 Hemoglobin A1c 11.8 % (4.2-6.5) H 06/04/17 07:00 Calcium 9.3 mg/dL (8.4-10.5) 06/05/17 05:30 Phosphorus 3.9 mg/dL (2.5-4.5) 06/04/17 07:00 Magnesium 1.8 mg/dL (1.7-2.2) 06/04/17 07:00 Total Bilirubin 0.7 mg/dL (0.2-1.3) 06/04/17 07:00 AST 99 U/L (15-39) H 06/04/17 07:00 ALT 224 U/L (7-56) H 06/04/17 07:00 Alkaline Phosphatase 213 U/L (38-133) H 06/04/17 07:00 Total Protein 6.8 g/dL (5.8-8.3) 06/04/17 07:00 Albumin 3.8 g/dL (3.0-4.8) 06/04/17 07:00 Globulin 3.0 gm/dL 06/04/17 07:00 Albumin/Globulin Ratio 1.3 (1.1-1.8) 06/04/17 07:00 Lipase 285 U/L (23-300) 06/03/17 10:40 CA 19-9 Antigen 4490 U/mL (0-37) H 06/04/17 07:00 Urine Color Yellow (YELLOW) 06/03/17 10:40 Urine Appearance Clear (CLEAR) 06/03/17 10:40 Urine pH 5.5 (4.7-8.0) 06/03/17 10:40 Ur Specific Burnham 1.025 (1.005-1.035) 06/03/17 10:40 Urine Protein Negative mg/dL (<30 mg/dL) 06/03/17 10:40 Urine Glucose (UA) >=1000 mg/dL (NEGATIVE) 06/03/17 10:40 Urine Ketones >=80 mg/dL (NEGATIVE) 06/03/17 10:40 Urine Blood Negative (NEGATIVE) 06/03/17 10:40 Urine Nitrate Negative (NEGATIVE) 06/03/17 10:40 Urine Bilirubin Negative (NEGATIVE) 06/03/17 10:40 Urine Urobilinogen 0.2 E.U./dL (<1 E.U./dL) 06/03/17 10:40 Ur Leukocyte Esterase Negative Abhishek/uL (NEGATIVE) 06/03/17 10:40 Discharge Exam - Head Exam Head Exam: ATRAUMATIC, NORMAL INSPECTION Discharge Plan - Follow Up Plan Condition: FAIR Disposition: HOME/ ROUTINE Referrals: PCP,NO [Primary Care Provider] -
--- NOTE | 2017-06-05 15:31 | PN ---
DATE: 06/05/2017 SUBJECTIVE: The patient is lying in bed, comfortable and her abdominal pain is somewhat less. She underwent a CT guided biopsy yesterday. Her CA 19-9 level is markedly elevated at 4490. The patient denies any nausea or vomiting. PHYSICAL EXAMINATION: VITAL SIGNS: Reveal temperature of 98.5, blood pressure of 133/66, and heart rate of 87. HEENT: Reveal sclerae to be white. Conjunctivae pink. NECK: Supple. CHEST: Reveal lungs to be clear. HEART: Exam reveals a regular rate and rhythm. ABDOMEN: Soft. There is mild diffuse tenderness. There is no rebound. There is no guarding. EXTREMITIES: Shows no edema. LABORATORY DATA: Reveal blood sugar of 299, otherwise normal electrolytes. IMPRESSION: This is a 52-year-old female with a mass in the head and uncinate process of the pancreas measuring 2.2 cm x 3.3 cm with elevated CA 19-9 level of around 4500. This is most likely a pancreatic mass locally advanced with periaortic lymph node as well as some mesenteric stranding around the mesenteric artery and compression of the mesenteric vein. Results of CT-guided biopsy are pending. RECOMMENDATIONS: The patient is to followup with oncology early next week once the pathology results are back. She will be referred to an oncologic surgeon for feasibility of resection. Family is also taking about going to [place] to seek alternative treatments for pancreatic cancer without the use of traditional chemotherapy. Note, the patient's brother from pancreatic cancer in his 40s. The patient certainly is at risk for hereditary pancreatic cancer with a BRCA 2 gene mutation or STK11 gene mutation. Jabier Kenny MD
--- NOTE | 2017-06-05 15:33 | CP.PCM.PN ---
<Rylie Chapin - Last Filed: 06/05/17 15:48> Subjective - Date & Time of Evaluation Date of Evaluation: 06/05/17 Time of Evaluation: 07:40 - Subjective Subjective: Rylie Chapin DO, PGY-1, Internal Medicine, Hospitalist Service Patient seen and examined at bedside. Per nursing, patient was refusing insulin , wanted to continue home regimen. Currently patient having some abdominal pain at the biopsy site. Appetite is low. Denies any headaches, dizziness, cp, sob, palpitations, urinary symptoms, changes in bowel habits. Objective - Vital Signs/Intake and Output Vital Signs (last 24 hours): Temp Pulse Resp BP Pulse Ox 98.5 F 87 20 133/66 100 06/05/17 08:27 06/05/17 08:27 06/05/17 08:27 06/05/17 08:27 06/05/17 08:27 Intake and Output: 06/05/17 06/05/17 06:59 18:59 Intake Total 480 Balance 480 - Medications Medications: Current Medications Acetaminophen (Tylenol 325mg Tab) 650 mg PO Q4 PRN PRN Reason: Pain, Mild (1-3) Ibuprofen (Motrin Tab) 600 mg PO Q6H PRN PRN Reason: Pain, Mild (1-3) Insulin Detemir (Levemir) 12 unit SC Q12 [facility] Insulin Human Lispro (Humalog Med) 0 units SC ACHS [facility] Last Admin: 06/05/17 12:09 Dose: 7 units Ketorolac Tromethamine (Toradol) 30 mg IVP Q6H PRN PRN Reason: Pain, moderate (4-7) Last Admin: 06/04/17 22:58 Dose: 30 mg Ondansetron HCl (Zofran Inj) 4 mg IVP Q6H PRN PRN Reason: Nausea/Vomiting Last Admin: 06/04/17 22:53 Dose: 4 mg Oxycodone/Acetaminophen (Percocet 5/325 Mg Tab) 1 tab PO Q4H PRN PRN Reason: Pain, moderate (4-7) Stop: 06/07/17 13:14 Last Admin: 06/04/17 13:50 Dose: 1 tab Pantoprazole Sodium (Protonix Ec Tab) 40 mg PO 0600 [facility] Last Admin: 06/05/17 05:48 Dose: 40 mg - Labs Labs: 06/05/17 05:30 06/05/17 05:30 PT 10.4 Seconds (9.9-11.8) 06/04/17 14:25 INR 0.96 (0.93-1.08) 06/04/17 14:25 APTT 26.1 Seconds (23.7-30.8) 06/04/17 14:25 - Constitutional Appears: Well, No Acute Distress - Head Exam Head Exam: ATRAUMATIC, NORMAL INSPECTION - Eye Exam Eye Exam: EOMI, Normal appearance. absent: Scleral icterus - ENT Exam ENT Exam: Mucous Membranes Moist - Neck Exam Neck Exam: Full ROM - Respiratory Exam Respiratory Exam: Clear to Ausculation Bilateral, NORMAL BREATHING PATTERN. absent: Rales, Rhonchi, Wheezes - Cardiovascular Exam Cardiovascular Exam: REGULAR RHYTHM, +S1, +S2 - GI/Abdominal Exam GI & Abdominal Exam: Soft, Normal Bowel Sounds. absent: Guarding, Rigid, Tenderness Additional comments: Dressing c/d/i - Extremities Exam Extremities Exam: Normal Inspection. absent: Calf Tenderness, Pedal Edema - Back Exam Back Exam: NORMAL INSPECTION - Neurological Exam Neurological Exam: Alert, Awake, CN II-XII Intact, Normal Gait, Oriented x3 - Psychiatric Exam Psychiatric exam: Normal Affect, Normal Mood - Skin Skin Exam: Normal Color, Warm Assessment and Plan - Assessment and Plan (Free Text) Assessment: 52 year old female with past medical hx of uncontrolled diabetes mellitus presents with 3 day history of B/L flank pain, CT abd/pelvis showing hypodense mass in the head and uncinate process of pancreas with invasion of the fat planes around the superior mesenteric artery/vein. Adjacent adenopathy Plan: 1. Pancreatic Mass, r/o malignancy -Stable, afebrile -S/P CT guided biopsy with IR -F/U pathology results -CA 19-9 markedly elevated, 4490 -Pain control: Toradol and percocet prn -CT abd/pelvis: hypodense mass in the head and uncinate process of pancreas -Patient has appointment with Heme/Onc for next thursday, family discussing possibility of going to [place] to receive tx alternatives to chemotherapy -GI on consult f/u recommendations -Heme/Onc on consult, f/u recommendations 2. Uncontrolled Diabetes Mellitus, Type 2 -HgA1C 11.8, CBGs 200-300s -Medium dose ISS -Increased Levemir 12 U -Accuchecks ACHS -Continue to monitor BS overnight and discharge tomorrow 3. Transaminitis -AST/ALT: 99/224 on admission -CT abd/pelvis: liver/gallbladder unremarkable -Continue to monitor -Avoid hepatotoxic agents -GI on consult f/u recommendations 4. GI/DVT ppx -Protonix 40mg PO daily -SCDs <Kelsey Lee B - Last Filed: 06/06/17 13:20> Objective - Vital Signs/Intake and Output Vital Signs (last 24 hours): Temp Pulse Resp BP Pulse Ox 98 F 76 20 136/77 99 06/05/17 15:55 06/05/17 15:55 06/05/17 15:55 06/05/17 15:55 06/05/17 15:55 Intake and Output: 06/06/17 06/06/17 06:59 18:59 Intake Total 120 240 Balance 120 240 - Medications Medications: Current Medications Acetaminophen (Tylenol 325mg Tab) 650 mg PO Q4 PRN PRN Reason: Pain, Mild (1-3) Ibuprofen (Motrin Tab) 600 mg PO Q6H PRN PRN Reason: Pain, Mild (1-3) Insulin Detemir (Levemir) 15 unit SC Q12 [facility] Last Admin: 06/06/17 09:33 Dose: 15 unit Insulin Human Regular (Humulin R) 5 units SC TID [facility] Ketorolac Tromethamine (Toradol) 30 mg IVP Q6H PRN PRN Reason: Pain, moderate (4-7) Last Admin: 06/04/17 22:58 Dose: 30 mg Ondansetron HCl (Zofran Inj) 4 mg IVP Q6H PRN PRN Reason: Nausea/Vomiting Last Admin: 06/04/17 22:53 Dose: 4 mg Oxycodone/Acetaminophen (Percocet 5/325 Mg Tab) 1 tab PO Q4H PRN PRN Reason: Pain, moderate (4-7) Stop: 06/07/17 13:14 Last Admin: 06/06/17 08:45 Dose: 1 tab Pantoprazole Sodium (Protonix Ec Tab) 40 mg PO 0600 [facility] Last Admin: 06/06/17 06:00 Dose: 40 mg - Labs Labs: 06/05/17 05:30 06/05/17 05:30 PT 10.4 Seconds (9.9-11.8) 06/04/17 14:25 INR 0.96 (0.93-1.08) 06/04/17 14:25 APTT 26.1 Seconds (23.7-30.8) 06/04/17 14:25 Attending/Attestation - Attestation I have personally seen and examined this patient.: Yes I have fully participated in the care of the patient.: Yes I have reviewed all pertinent clinical information, including history, physical exam and plan: Yes Notes (Text): Briefly this is 52 year old female with history of uncontrolled DM who presented with bilateral flank pain and found to have locally advanced pancreatic cancer on CT abdomen. GI and hematology consult was obtained. Patient underwent CT guided biopsy by IR on 06/04/2017. Patient had mild discomfort after biopsy and overall she tolerated the procedure well. She was also found to have uncontrolled DM. As per patient, she has been taking lantus 50 units at night and metformin. A1C came back as 11.8. She was started on Levemir 12 q12 . Continue ISS. Advised the patient to stay one more day as BS has been very uncontrolled. Patient was advised to make DM diary. Diabetic teaching was provided. Patient has an appt next week with Dr Kenny and Dr Giron to discuss biopsy results. Also advised patient to follow up with Dr Lau ( child attendant). Follow up with Dr Boyce within 3-[address] Kelsey Lee
[2017-06-05 15:55] VITALS: BP 136/77; PULSE 76; TEMP 98; O2SAT 99
[2017-06-05] MEDS ORDERED: POLYETHYLENE GLYCOL 3350 17 GM/Dose PACKET PO ONE (21:52)
[2017-06-05] MEDS: Oxycodone/Acetaminophen 5/325 mg Tab PO PRN (23:27)
[2017-06-06] MEDS: Pantoprazole 40 mg EC Tab PO SCH (06:00)
[2017-06-06] MEDS ORDERED: Insulin Detemir 100 units/ml Vial (Levemir) SC SCH (07:44)
[2017-06-06] MEDS: Oxycodone/Acetaminophen 5/325 mg Tab PO PRN ×2 (08:04→08:45)
[2017-06-06] MEDS: Insulin Lispro (humaLOG) MEDIUM Coverage SC SCH ×2 (08:05→12:03)
--- NOTE | 2017-06-06 13:12 | CP.PCM.DIS ---
Provider - Provider Date of Admission: 06/03/17 13:26 Attending physician: Kelsey Lee MD Primary care physician: Dr Jairo Boyce Consults: Dr Efraín Giron Time Spent in preparation of Discharge (in minutes): 45 Hospital Course - Lab Results Lab Results: Most Recent Lab Values WBC 4.9 10^3/ul (4.5-11.0) 06/05/17 05:30 RBC 4.15 10^6/uL (3.5-6.1) 06/05/17 05:30 Hgb 11.9 g/dL (12.0-16.0) L 06/05/17 05:30 Hct 35.1 % (36.0-48.0) L 06/05/17 05:30 MCV 84.6 fl (80.0-105.0) 06/05/17 05:30 MCH 28.7 pg (25.0-35.0) 06/05/17 05:30 MCHC 33.9 g/dl (31.0-37.0) 06/05/17 05:30 RDW 13.5 % (11.5-14.5) 06/05/17 05:30 Plt Count 271 10^3/uL (120.0-450.0) 06/05/17 05:30 MPV 9.9 fl (7.0-11.0) 06/05/17 05:30 Gran % 54.8 % (50.0-68.0) 06/04/17 07:00 Lymph % (Auto) 37.7 % (22.0-35.0) H 06/04/17 07:00 Sharkey % (Auto) 5.8 % (1.0-6.0) 06/04/17 07:00 Eos % (Auto) 1.3 % (1.5-5.0) L 06/04/17 07:00 Baso % (Auto) 0.4 % (0.0-3.0) 06/04/17 07:00 Gran # 2.56 (1.4-6.5) 06/04/17 07:00 Lymph # 1.8 (1.2-3.4) 06/04/17 07:00 Sharkey # 0.3 (0.1-0.6) 06/04/17 07:00 Eos # 0.1 (0.0-0.7) 06/04/17 07:00 Baso # 0.02 K/mm3 (0.0-2.0) 06/04/17 07:00 PT 10.4 Seconds (9.9-11.8) 06/04/17 14:25 INR 0.96 (0.93-1.08) 06/04/17 14:25 APTT 26.1 Seconds (23.7-30.8) 06/04/17 14:25 Sodium 141 mmol/L (132-148) 06/05/17 05:30 Potassium 4.5 mmol/L (3.6-5.0) 06/05/17 05:30 Chloride 105 mmol/L (95-110) 06/05/17 05:30 Carbon Dioxide 25 mmol/L (21-33) 06/05/17 05:30 Anion Gap 16 (10-20) 06/05/17 05:30 BUN 12 mg/dL (7-21) 06/05/17 05:30 Creatinine 0.5 mg/dL (0.5-1.4) 06/05/17 05:30 Est GFR ( Amer) > 60 06/05/17 05:30 Est GFR (Non-Af Amer) > 60 06/05/17 05:30 POC Glucose (mg/dL) 356 mg/dL (65-110) H 06/06/17 11:17 Random Glucose 299 mg/dL (70-110) H 06/05/17 05:30 Hemoglobin A1c 11.8 % (4.2-6.5) H 06/04/17 07:00 Calcium 9.3 mg/dL (8.4-10.5) 06/05/17 05:30 Phosphorus 3.9 mg/dL (2.5-4.5) 06/04/17 07:00 Magnesium 1.8 mg/dL (1.7-2.2) 06/04/17 07:00 Total Bilirubin 0.7 mg/dL (0.2-1.3) 06/04/17 07:00 AST 99 U/L (15-39) H 06/04/17 07:00 ALT 224 U/L (7-56) H 06/04/17 07:00 Alkaline Phosphatase 213 U/L (38-133) H 06/04/17 07:00 Total Protein 6.8 g/dL (5.8-8.3) 06/04/17 07:00 Albumin 3.8 g/dL (3.0-4.8) 06/04/17 07:00 Globulin 3.0 gm/dL 06/04/17 07:00 Albumin/Globulin Ratio 1.3 (1.1-1.8) 06/04/17 07:00 Lipase 285 U/L (23-300) 06/03/17 10:40 CA 19-9 Antigen 4490 U/mL (0-37) H 06/04/17 07:00 Urine Color Yellow (YELLOW) 06/03/17 10:40 Urine Appearance Clear (CLEAR) 06/03/17 10:40 Urine pH 5.5 (4.7-8.0) 06/03/17 10:40 Ur Specific Gypsy 1.025 (1.005-1.035) 06/03/17 10:40 Urine Protein Negative mg/dL (<30 mg/dL) 06/03/17 10:40 Urine Glucose (UA) >=1000 mg/dL (NEGATIVE) 06/03/17 10:40 Urine Ketones >=80 mg/dL (NEGATIVE) 06/03/17 10:40 Urine Blood Negative (NEGATIVE) 06/03/17 10:40 Urine Nitrate Negative (NEGATIVE) 06/03/17 10:40 Urine Bilirubin Negative (NEGATIVE) 06/03/17 10:40 Urine Urobilinogen 0.2 E.U./dL (<1 E.U./dL) 06/03/17 10:40 Ur Leukocyte Esterase Negative Abhishek/uL (NEGATIVE) 06/03/17 10:40 - Hospital Course Hospital Course: Briefly this is 52 year old female with history of uncontrolled DM who presented with bilateral flank pain and found to have locally advanced pancreatic cancer on CT abdomen. GI and hematology consult was obtained.Patient underwent CT guided biopsy by IR on 06/04/2017. Patient had mild discomfort after biopsy and she tolerated the procedure well. She was also found to have uncontrolled DM. As per patient, she has been taking lantus 50 units at night and metformin. A1C came back as 11.8. She was started on Levemir 15 q12 with regular insulin 5 ACTID. Patient was advised to make DM diary. Diabetic counseling was provided. Patient has an appt next week with Dr Kenny and Dr Giron. Also advised patient to follow up with Dr Lau (road packer operator). It was advised to have BRCA2 and Stk 11 gene mutation test as an outpatient for possible hereditary pancreatic cancer. Discharge Exam - Head Exam Head Exam: ATRAUMATIC, NORMAL INSPECTION - Eye Exam Eye Exam: EOMI, Normal appearance Pupil Exam: PERRL - Neck Exam Neck exam: Full Rom, Normal Inspection - Respiratory Exam Respiratory Exam: Clear to PA & Lateral, NORMAL BREATHING PATTERN. absent: Chest Wall Tenderness, Decreased Breath Sounds, Prolonged Expiratory Phase, Rhonchi, Wheezes - Cardiovascular Exam Cardiovascular Exam: REGULAR RHYTHM, +S1, +S2 - GI/Abdominal Exam GI & Abdominal Exam: Normal Bowel Sounds, Soft. absent: Distended, Tenderness - Rectal Exam Rectal Exam: Deferred - Extremities Exam Extremities exam: full ROM, normal capillary refill, normal inspection, pedal pulses present - Back Exam Back exam: FULL ROM, NORMAL INSPECTION. absent: CVA tenderness (L), CVA tenderness (R), rash noted, tenderness - Neurological Exam Neurological exam: Alert, CN II-XII Intact, Normal Gait, Oriented x3, Reflexes Normal - Psychiatric Exam Psychiatric exam: Normal Affect, Normal Mood - Skin Skin Exam: Dry, Intact, Normal Color, Warm Discharge Plan - Discharge Medications Prescriptions: Ibuprofen [Motrin Tab] 600 mg PO Q6H PRN #20 tab PRN Reason: Pain, Moderate (4-7) Insulin Regular [HumuLIN R] 5 units SC TID 15 Days Insulin Detemir [Levemir] 15 unit SC Q12 15 Days - Follow Up Plan Condition: FAIR Disposition: HOME/ ROUTINE Instructions: Diabetes Mellitus Type 2 in Adults (DC) Additional Instructions: Patient is clear for discharge home. Patient to follow up with heme/onc, GI, PMD within 1 week. Patient can take Motrin prn pain. Referrals: Mario Ramires MD [Staff Provider] - JOYCE CORONADO [Primary Care Provider] - Mack WELLS,MD Sammy [Staff Provider] -
[2017-06-06] MEDS ORDERED: Insulin Regular 1 UNITS/0.01 ML ML SC SCH (14:00)
== END 2017-06-06 16:18 | disposition home or self-care (01) | DRG 203 ==
LOC: ED 09:11 → ERH 13:26 → 3RSO 15:06
PROVIDERS: ADMIT Hospitalist; ATTEND Hospitalist
PROC: 0FBG3ZX Excision of Pancreas, Percutaneous Approach, Diagnostic (ICD-10-PCS; principal; 2017-06-04 15:00)
DX: C25.9 Malignant neoplasm of pancreas, unspecified (principal); E11.65 Type 2 diabetes mellitus with hyperglycemia; H26.9 Unspecified cataract; Z79.4 Long term (current) use of insulin; Z88.0 Allergy status to penicillin